=== PATIENT | female | born 1990 | race African-American/Black ===

== ENCOUNTER 2021-05-18 16:36 | Emergency (ER) | payer BC ==
[~2021-05-18] VITALS: Ht 180.3 cm; Wt 136.4 kg
[~2021-05-18 16:36] MED LIST: FLEXERIL 1010 MG/TAB PO; MIRENA52 MG IY; ZOFRAN ODT4 MG PO
[2021-05-18 16:46] VITALS: TEMP 100.5
[2021-05-18] MEDS ORDERED: ZITHROMAX Z PA250 MG PO (20:11)
[2021-05-18 20:16] VITALS: BP 100/6; PULSE 92
== END 2021-05-18 20:21 | disposition home or self-care (01) ==
LOC: COL.ER 16:36
DX: J45.909 Unspecified asthma, uncomplicated (principal); S16.1XXA Strain of muscle, fascia and tendon at neck level, initial encounter; K29.70 Gastritis, unspecified, without bleeding; Z20.822 Contact with and (suspected) exposure to COVID-19; V89.2XXA Person injured in unspecified motor-vehicle accident, traffic, initial encounter
CPT/HCPCS: J7030